=== PATIENT | male | born 1960 | race Caucasian/White ===

== ENCOUNTER 2025-03-28 02:40 | Emergency (ER) | payer MEDICARE, SELFPAY ==
[2025-03-28 02:41] VITALS: BMI 27.1
[2025-03-28 03:04] VITALS: BP 159/93; PULSE 98; RESP 18; TEMP 36.8; O2SAT 95
--- NOTE | 2025-03-28 03:15 | EDNOTE_ITS ---
ED Male Genitalurinary RME/HPI General Chief complaint: Urogenital-Male Stated complaint: UNABLE TO URINATE Time Seen by Provider: 03/28/25 03:08 Arrival date/time: 03/28/25 02:40 64M with history of chronic Dominguez presents to ED with urinary retention for several hours. Limitations: no limitations Related Data Previous Rx's ?Medication ?Instructions ?Recorded cefuroxime axetil 500 mg tablet 500 mg PO BID 7 days # 14 tabs 03/28/25 Allergies Allergy/AdvReac Type Severity Reaction Status Date / Time No Known Allergies Allergy Verified 03/28/25 02:44 Review of Systems Review of Systems Systems Reviewed: All systems reviewed, normal except as documented Constitutional Constitutional: Reports system reviewed and no additional complaints, except as documented, Denies fever(s) and Denies headache(s) ENT Ears, Nose, Mouth, and Throat: Denies disequilibrium and Denies headache(s) Cardiovascular Cardiovascular: Reports system reviewed and no additional complaints, except as documented, Denies chest pain and Denies dyspnea Respiratory Respiratory: Reports system reviewed and no additional complaints, except as documented, Denies cough and Denies dyspnea Gastrointestinal Gastrointestinal: Reports system reviewed and no additional complaints, except as documented, Denies abdominal pain, Denies nausea and Denies vomiting Genitourinary Genitourinary: Reports as per HPI and Reports difficulty urinating Neurologic Neurologic: Reports system reviewed and no additional complaints, except as documented, Denies confusion, Denies disequilibrium and Denies headache(s) Psychiatric Psychiatric: Denies confusion Past Medical History Social History SMOKING STATUS: Never smoker ED Exam General Limitations: Present no limitations General appearance: Present alert and in no apparent distress Head Head exam: Present atraumatic Eye Eye exam: Present normal appearance, PERRL and EOMI ENT ENT exam: Present normal exam, normal oropharynx and mucous membranes moist Neck Neck exam: Present normal inspection, full ROM and trachea midline Chest Chest inspection: Present normal inspection and symmetric chest wall rise Respiratory Respiratory exam: Present normal lung sounds bilaterally Cardiovascular Cardiovascular exam: Present regular rate, normal rhythm and normal heart sounds Abdominal Exam Abdominal exam: Present soft and normal bowel sounds Extremities Exam Extremities exam: Present normal inspection and full ROM Back Exam Back exam: Present normal inspection and full ROM Neurological Exam Neurological exam: Present alert, oriented X3 and CN II-XII intact Psychiatric Psychiatric exam: Present normal affect and normal mood Skin Skin exam: Present warm, dry, intact and normal color Course Quality Measures none Orders Category Date Time Status Catheter [Urinary Catheter] QS Care 03/28/25 03:14 Active Dominguez to Leg Bag Routine Care 03/28/25 03:14 Ordered Urinalysis, C/S if Indicated Stat Lab 03/28/25 03:30 Completed Urine Culture Stat Lab 03/28/25 03:30 Received cefuroxime axetiL [cefUROXime axetil] Med 03/28/25 03:57 Discontinued 500 mg PO X1 ONE Vital Signs Vital signs: Vital Signs Temperature 98.2 F 03/28/25 03:04 Pulse Rate 98 03/28/25 03:04 Respiratory Rate 18 03/28/25 03:04 Blood Pressure 159/93 H 03/28/25 03:04 Pulse Oximetry (%) 95 03/28/25 03:04 Oxygen Delivery Method Room Air 03/28/25 03:04 O2 at 95% on RA and WNLs Urogenital - Male MDM Narrative MDM Narrative:: 64M with history of chronic Dominguez presents to ED with urinary retention for several hours. Physical exam reveals uncomfortable-appearing male. Patient is afebrile and alert. Dominguez replaced and urine flowed freely. RN noticed urine very cloudy with some discharge. UA suggests UTI, likely colonized. But will give narrow-spectrum ABX. Patient data External records reviewed:: None Clinical information provided by:: patient Social determinants that could affect healthcare access:: none Patient has the following chronic illnesses:: chronic Dominguez How is presenting disease/condition affected by chronic disease/condition?: exacerbated by Evaluation data The following diagnostics were reviewed and interpreted by me:: other (specify) (none) Lab and/or radiology exams considered but not ordered:: not ordered Interpretation Summary: n/a Medications / Prescriptions Medications or Prescriptions considered but not ordered:: not ordered Medication administrations:: Medication Administration History Discontinued Medications Cefuroxime Axetil (Cefuroxime Axetil 250 Mg Tablet) 500 mg PO X1 ONE Stop: 03/28/25 03:58 n/a Consultations Consultation(s) initiated? (list below): No Diagnosis Urogenital Male Differential Diagnosis: urinary tract infection, priapism, urethritis, epididymitis, genital herpes simplex, prostatitis, acute retention of urine and inguinal hernia Most likely diagnosis given after review of the tests above:: UTI and urinary retention Admission Indicated Admission indicated?: not indicated Admission Request Was there a request for admission?: No Disposition Plan Disposition Plan: Discharge Discharge Attestation Discharge Attestation: The patient and all family members were given an opportunity to ask questions and understood the discharge instructions. Discharge instructions specifically effects, indications for sooner follow up or return to the emergency department, and the expected course of current diagnosis. Patient condition: Stable Discharge Plan Plan Patient Disposition: HOME (Self Care) Discharge Disposition comment: Stable Prescriptions/Referrals Prescriptions/Med Rec: New cefuroxime axetil 500 mg tablet 500 mg PO BID 7 Days Qty: 14 0RF Problem List Clinical Impression: Acute retention of urine, UTI (urinary tract infection) Patient/Caregiver Discharge Instructions Additional Instructions: Please follow-up with PCP within 24-48 hours and return immediately if symptoms worsen. Print Language: Icelandic Stand Alone Forms: Patient Portal Info Letter ANGELIC/ABDIAS Supervising Physician ANGELIC/ABDIAS Supervising Physician: Dr. Tam
[2025-03-28 03:45] LABS: Collection Type, Urine Catheter; Squamous Epithelial Cell,Urine 0 /hpf (0-5)
[2025-03-28 03:51] LABS: Bacteria,Urine 3+; Bilirubin,Urine Negative (Negative); Blood,Urine 2+ (Negative); Clarity,Urine Turbid (Clear/Hazy); Color,Urine Lt-Yellow (Lt Yel-Yel); Culture Indicated,Urine Yes; Glucose, Urine 3+ (Negative); Ketones,Urine Negative (Negative); Leukocyte Esterase,Urine Positive (Negative); Nitrite,Urine Positive (Negative); PH,Urine 6.0 (5.0-7.0); Protein,Urine 1+ (Neg - Trace); RBC,Urine 83 /hpf (0-3); Specific Gravity,Urine 1.012 (1.001-1.035); Urobilinogen,Urine Negative mg/dL (0.0-1.0); WBC,Urine 165 /hpf (0-5)
--- NOTE | 2025-03-28 04:56 | PC.NURSE ---
WITH [facility] CATH IN PLACE, BLADDER IRRIGATED WITH NS. PTS LEG BAG REPLACED. PT INSTRUCTED ON CARE OF CATH. PT VERBALIZES THAT HE UNDERSTANDS.
[2025-03-28 04:58] VITALS: PULSE 78; RESP 18; TEMP 36.7; O2SAT 98
== END 2025-03-28 04:58 | disposition home or self-care (01) ==
LOC: SERX 07:08
PROVIDERS: Physician Assistant; Emergency Provider Emergency Medicine; PCP Internal Medicine Hematology
DX: N39.0 Urinary tract infection, site not specified (principal)
CPT/HCPCS: 51702; 81001; 87077; 87086; 87186; 99283; A4314; A9270